=== PATIENT | female | born 1970 | race Caucasian/White ===

== ENCOUNTER 2017-01-11 13:01 | Emergency (ER) | payer BC ==
[~2017-01-11] VITALS: Ht 180.3 cm; Wt 71.7 kg
[2017-01-11 14:16] VITALS: BP 130/80
--- NOTE | 2017-01-12 14:16 | Emergency Room Report ---
History of Present Illness General Chief Complaint: Allergic Reaction Source: Patient Present Illness HPI Patient is a 46-year-old female who presented after having increased right- sided facial throbbing. Patient reported having some twitching to the muscle right side of her face. She denied any vomiting. She denied severe headache. Patient stated that this began after taking doxycycline. Patient had prior history of recent tick bite which is taking doxycycline. The patient completed 6-7 days prior to arrival. She had not been vomiting she denies severe headache. She denied weakness to her extremities. Allergies: Coded Allergies: TIOCONAZOLE (Verified Allergy, Unknown, 01/11/17) Patient History Past Medical History: see triage record Reviewed Nursing Documentation: PMH: Agreed, PSxH: Agreed Nursing Documentation-PMH Past Medical History: No Stated History Review of Systems All Other Systems: negative except mentioned in HPI Physical Exam Vital Signs Date Time Temp Pulse Resp B/P Pulse Ox O2 Delivery O2 Flow Rate FiO2 01/11/17 13:17 68 14 130/85 100 Room Air 01/11/17 14:16 98.0 General Appearance: well appearing, no apparent distress, alert, GCS 15, non- toxic Head: normocephalic, atraumatic ENT: hearing grossly normal, normal voice Neck: full range of motion, supple Respiratory: no respiratory distress, speaking full sentences Gastrointestinal: normal inspection Musculoskeletal: no calf tenderness Neurologic: normal inspection, alert, oriented x3, responsive, product marketing coordinator III-XII nml as tested, motor strength/tone normal, sensory intact, normal gait Psychiatric: normal inspection, judgement/insight normal, memory normal, mood/ affect normal Skin: no rash Medical Decision Making Diagnostic Impression: Primary Impression: Drug reaction ER Course Patient presented for facial twitching. Differential diagnosis included was not limited to Juarez's palsy, hypocalcemia, hyperventilation, neuropathy, transient ischemic attack among others. Patient's benign exam and does not appear to require any further imaging or laboratory testing at this time. It appears that the patient's symptoms are completely resolved. The patient is advised to discontinue doxycycline use.The patient is advised to follow up with primary care doctor in 1-2 days. Patient is advised to return if any worsening condition or if any changes in status that are concerning. Last Vital Signs Date Time Temp Pulse Resp B/P Pulse Ox O2 Delivery O2 Flow Rate FiO2 01/11/17 14:16 98.0 78 16 130/80 98 Room Air Status: improved Disposition: HOME, SELF-CARE Condition: Improved Referrals: NOT CHOSEN IPA/MD,REFERRING (PCP) Patient Instructions: Drug Allergy Efe Reese January 12, 2017 14:16
== END 2017-01-11 14:14 | disposition home or self-care (01) ==
LOC: EMR 13:45
DX: T88.7XXA Unspecified adverse effect of drug or medicament, initial encounter (principal); T36.4X5A Adverse effect of tetracyclines, initial encounter; Y92.9 Unspecified place or not applicable; Z88.8 Allergy status to other drugs, medicaments and biological substances
CPT/HCPCS: 99282